=== PATIENT | female | born 1950 | race African-American/Black ===

== ENCOUNTER 2020-03-06 07:39 | Inpatient (IN) | payer BC, MEDICARE ==
[2020-03-06 08:42] LABS: ABSOLUTE BASOPHILS # (AUTO) 0.1 10^3/uL (0.0-0.2); ABSOLUTE EOSINOPHILS # (AUTO) 0.1 10^3/uL (0.0-0.6); ABSOLUTE MONOCYTES (AUTO) 0.4 10^3/uL (0.1-1.4); BASOPHILS % (AUTO) 0.9 % (0-2); EOSINOPHILS % (AUTO) 1.8 % (0-6); HEMATOCRIT 37.9 % (36.0-47.0); HEMOGLOBIN 12.8 g/dL (12.0-15.5); LYMPHOCYTES % (AUTO) 17.5 % (13-45); MEAN CORPUSCULAR HEMOGLOBIN 31.1 pg (27.0-33.4); MEAN CORPUSCULAR HGB CONC 33.8 g/dL (32.0-36.0); MEAN CORPUSCULAR VOLUME 92 fl (80-97); MONOCYTES % (AUTO) 6.7 % (3-13); PLATELET COUNT 130 10^3/uL (150-450); RED BLOOD COUNT 4.12 10^6/uL (3.72-5.28); RED CELL DISTRIBUTION WIDTH 14.7 % (11.5-14.0); SEGMENTED NEUTROPHILS % (AUTO) 73.1 % (42-78); TOTAL CELLS COUNTED % (AUTO) 100 %; WHITE BLOOD COUNT 5.5 10^3/uL (4.0-10.5)
[2020-03-06] MEDS ORDERED: IPRATROPIUM/ALBUTEROL 0.5-2.5 MG/3 ML AMPUL NEB ONE (08:47)
--- NOTE | 2020-03-06 08:50 | RADIOLOGY REPORT (SQ) ---
EXAM DESCRIPTION: CHEST SINGLE VIEW IMAGES COMPLETED DATE/TIME: 03/06/2020 8:21 am REASON FOR STUDY: SOB COMPARISON: None. EXAM PARAMETERS: NUMBER OF VIEWS: One view. TECHNIQUE: An AP view of the chest was obtained. RADIATION DOSE: NA LIMITATIONS: None. FINDINGS: LUNGS AND PLEURA: Patchy bilateral basilar predominant patchy parenchymal opacities. The costophrenic sulci are blunted. There is no pneumothorax. MEDIASTINUM AND HILAR STRUCTURES: No mediastinal or hilar contour abnormality. HEART AND VASCULAR STRUCTURES: The cardiac silhouette is enlarged. BONES: No acute findings. HARDWARE: None in the chest. OTHER: No other finding. IMPRESSION: Cardiomegaly, small bilateral pleural effusions and patchy bilateral basilar predominant patchy parenchymal opacities. Differential considerations include CHF and multifocal pneumonia. TECHNICAL DOCUMENTATION: JOB ID: [id number] [employer]- All Rights Reserved Reading location - IP/workstation name: [email or web address]
--- NOTE | 2020-03-06 08:55 | ER Document Report ---
ED Respiratory Problem - General Chief Complaint: Shortness Of Breath Stated Complaint: breathing difficulty Time Seen by Provider: 03/06/20 08:16 Primary Care Provider: ALEX MENCHACA PA [Primary Care Provider] - Follow up as needed Notes: Patient is a 69-year-old female presents emergency department with a chief com plaint of shortness of breath. Patient tested positive for COVID-19 6 days ago. States that she had felt more short of breath yesterday and this morning. States that the only history she has is knee surgery. She does not take any medications on a regular basis. Denies any coughing. Patient was tested for COVID-19 at [facility] urgent care. TRAVEL OUTSIDE OF THE [place] IN LAST 30 DAYS: No - Related Data Allergies/Adverse Reactions: No Known Allergies Allergy (Unverified 03/06/20 08:02) Home Medications: tumerix, aspirin Past Medical History - General Information source: Patient - Social History Smoking Status: Current Some Day Smoker Chew tobacco use (# tins/day): No Frequency of alcohol use: None Drug Abuse: None Family History: Reviewed & Not Pertinent Patient has homicidal ideation: No Review of Systems - Review of Systems Notes: REVIEW OF SYSTEMS: CONSTITUTIONAL : Denies recent illness. Denies recent unintentional weight loss. Denies fever, chills, or sweats. EENT: Denies eye, ear, throat, or mouth pain, discharge, or symptoms. Denies nasal or sinus congestion. CARDIOVASCULAR: Denies chest pain. RESPIRATORY: See HPI. GASTROINTESTINAL: Denies nausea, vomiting, and diarrhea. Denies abdominal pain. Denies constipation. GENITOURINARY: Denies difficulty urinating, burning, blood in urine, urgency or frequency. MUSCULOSKELETAL: Denies neck and back pain. Denies joint pain or swelling. SKIN: Denies rash, itchiness, or lesions HEMATOLOGIC : Denies easy bruising or bleeding. LYMPHATIC: Denies swollen, painful, enlarged glands. NEUROLOGICAL: Denies no numbness or tingling denies weakness. Denies headache. Denies altered mental status. Denies alteration in speech. PSYCHIATRIC: Denies stress, anxiety, alteration in sleep patterns, or depression. All other systems reviewed and negative. Physical Exam - Vital signs Vitals: Temp 98.1 F 03/06/20 07:39 - Notes Notes: PHYSICAL EXAMINATION: GENERAL: Appears well, healthy, well-nourished, no acute distress. HEAD: Normocephalic, atraumatic. EYES: PERRL, conjunctiva normal, all extraocular movements intact, sclera nonicteric ENT: Moist mucous membranes. NECK: Supple, no noticeable swelling, redness, rash. Normal range of motion. LUNGS: Diminished breath sounds. CARDIOVASCULAR: S1-S2, regular rate, regular rhythm. Radial pulses 2+, normal. ABDOMEN: Normoactive bowel sounds. Soft, nontender, no guarding, no rebound tenderness, and no masses palpated. EXTREMITIES: Normal strength and range of motion, no pitting or edema. No cyanosis. NEUROLOGICAL: Moves all extremities upon command. Strength 5/5 in all extremities. PSYCH: Normal mood, normal affect. SKIN: Warm, dry. No rash, lesions, ulcerations noted. Normal skin turgor. Course - Re-evaluation Re-evalutation: 03/06/20 09:39 Patient reports that she is feeling better after receiving her DuoNeb treatment. Chest x-ray shows cardiomegaly with small bilateral pleural effusions or possibly pneumonia. Radiologist reads that there may be a CHF component to this. Added a BNP to labs. Hematology is unremarkable. Chemistries are also unremarkable. LFTs are slightly elevated. 03/06/20 10:37 BNP is 12,100, consistent with congestive heart failure. I spoke with Dr. Joshua, the hospitalist. Patient will be admitted under observation to the telemetry floor. - Vital Signs Vital signs: Temp Pulse Resp BP Pulse Ox 98.1 F 107 H 30 H 184/101 H 99 03/06/20 07:43 03/06/20 07:43 03/06/20 07:43 03/06/20 07:43 03/06/20 07:50 - Laboratory Results Result Diagrams: 03/06/20 08:28 03/06/20 08:28 Laboratory Results Interpreted: 03/06/20 03/06/20 03/06/20 08:28 08:28 08:28 RDW 14.7 H Plt Count 130 L Carbonic Acid ABG pCO2 ABG pO2 ABG HCO3 ABG Total CO2 ABG O2 Saturation Glucose 133 H AST 46 H ALT 77 H NT-Pro-B Natriuret Pep 80461 H Urine Protein Urine Blood Urine Urobilinogen Ur Leukocyte Esterase Urine Ascorbic Acid 03/06/20 03/06/20 09:29 09:37 RDW Plt Count Carbonic Acid 0.75 L ABG pCO2 25.0 L ABG pO2 60.7 L ABG HCO3 14.7 L ABG Total CO2 15.5 L ABG O2 Saturation 91.6 L Glucose AST ALT NT-Pro-B Natriuret Pep Urine Protein 100 H Urine Blood SMALL H Urine Urobilinogen 2.0 H Ur Leukocyte Esterase TRACE H Urine Ascorbic Acid 40 H Critical Laboratory Results Reviewed: No Critical Results - Radiology Results Critical Radiology Results Reviewed: No Critical Results Discharge - Discharge Clinical Impression: Hypoxia, COVID-19 Congestive heart failure Qualifiers: Heart failure type: unspecified Heart failure chronicity: acute Qualified Code(s): I50.9 - Heart failure, unspecified Condition: Stable Disposition: ADMITTED OBSERVATION Admitting Provider: Josiane (Hospitalist) Unit Admitted: Telemetry Referrals: ALEX MENCHACA PA [Primary Care Provider] - Follow up as needed
[2020-03-06] MEDS ORDERED: METHYLPREDNISOLONE INJ 125 MG/2 ML SDV IV ONE (08:58)
[2020-03-06 09:07] LABS: ALBUMIN 4.1 g/dL (3.5-5.0); ALKALINE PHOSPHATASE 90 U/L (38-126); ANION GAP 8 (5-19); ASPARTATE AMINO TRANSFERASE 46 U/L (14-36); BILIRUBIN,DIRECT 0.2 mg/dL (0.0-0.4); BLOOD UREA NITROGEN 14 mg/dL (7-20); CALCIUM 9.5 mg/dL (8.4-10.2); CARBON DIOXIDE 26 mmol/L (22-30); CHLORIDE 105 mmol/L (98-107); GLUCOSE 133 mg/dL (75-110); POTASSIUM 3.6 mmol/L (3.6-5.0); TOTAL PROTEIN 7.1 g/dL (6.3-8.2)
[2020-03-06 09:52] LABS: ARTERIAL BLOOD BASE EXCESS -8.6 mmol/L; ARTERIAL BLOOD H2CO3 0.75 mmol/L (1.05-1.35); ARTERIAL BLOOD HCO3 14.7 mmol/L (20-24); ARTERIAL BLOOD O2 SATURATION 91.6 % (94-98); ARTERIAL BLOOD PH 7.39 (7.35-7.45); ARTERIAL BLOOD PO2 60.7 mmHg (80-100); ARTERIAL BLOOD TOTAL CO2 15.5 mmol/L (21-25)
[2020-03-06 09:53] LABS: ARTERIAL BLOOD FIO2 RA
[2020-03-06 10:08] LABS: APPEARANCE,URINE SLIGHTLY-CLOUDY; BILIRUBIN,URINE NEGATIVE (NEGATIVE); COLOR,URINE YELLOW; GLUCOSE, URINE NEGATIVE (NEGATIVE); KETONES,URINE NEGATIVE (NEGATIVE); LEUKOCYTE ESTERASE,URINE TRACE (NEGATIVE); NITRITE,URINE NEGATIVE (NEGATIVE); PROTEIN,URINE 100 mg/dL (NEGATIVE)
[2020-03-06] MEDS ORDERED: FUROSEMIDE INJ/PF 20 MG/2 ML SDV IV ONE (10:20)
--- NOTE | 2020-03-06 11:38 | RADIOLOGY REPORT (SQ) ---
EXAM DESCRIPTION: CTA CHEST IMAGES COMPLETED DATE/TIME: 03/06/2020 11:04 am REASON FOR STUDY: SOB, COVID, R/O PE COMPARISON: None. TECHNIQUE: CT scan of the chest performed using helical scanning technique with dynamic intravenous contrast injection. Images reviewed with lung, soft tissue and bone windows. Reconstructed coronal and sagittal MPR images reviewed. Additional 3 dimensional post-processing performed to develop Maximal Intensity Projection images (NV P). All images stored on PACS. All CT scanners at this facility use dose modulation, iterative reconstruction, and/or weight based d osing when appropriate to reduce radiation dose to as low as reasonably achievable (ALARA). [facility]: Dose Right [facility]: CareDose [facility]: Dose Right [facility]: Teradose 4D [facility]: DigiMeld CONTRAST TYPE AND DOSE: Contrast/concentration: Isovue 350.00 mmol/ml; Total Contrast Delivered: 70. 0 ml; Total Saline Delivered: 55.0 ml Contrast bolus optimized for the pulmonary arteries. Not diagnostic for the aorta. RENAL FUNCTION: GFR > 60. RADIATION DOSE: CT Rad equipment meets quality standard of care and radiation dose reduction techniq ues were employed. CTDIvol: 14.6 - 26.4 mGy. DLP: 518 mGy-cm. LIMITATIONS: None. FINDINGS: LUNGS AND PLEURA: There is mild upper lobe predominant centrilobular emphysema. The trach ea and main bronchi are patent. There are small bilateral pleural effusions associated with thickeni ng of the interlobular septae. There is no superimposed consolidation or pneumothorax. AORTA AND GREAT VESSELS: Evaluation is limited as the contrast bolus was optimized for evaluation of the pulmonary arteries. HEART: The heart is enlarged. The reflux of contrast into the IVC and hepatic veins is suggestive o f underlying right-sided cardiac dysfunction. There is no pericardial effusion. PULMONARY ARTERIES: The main pulmonary artery is dilated and it measures 3.2 cm in transverse diamete r. There are no pulmonary emboli. HILAR AND MEDIASTINAL STRUCTURES: No adenopathy or mass. HARDWARE: None in the chest. UPPER ABDOMEN: No acute abnormality. THYROID AND OTHER SOFT TISSUES: No adenopathy or mass. BONES: The heterogeneous sclerotic appearance of the thoracic vertebral bodies from T5 to T12 is like ly degenerative as the sclerosis is centered around the endplates. 3D MIPS: Confirm above findings. OTHER: No other findings. IMPRESSION: 1. Cardiomegaly, small bilateral pleural effusions and thickening of the interlobular s eptae - these findings are concerning for CHF. 2. The reflux of contrast into the IVC and hepatic veins is suggestive of underlying right-sided car diac dysfunction. 3. Dilatation of the main pulmonary artery - correlate for pulmonary hypertension. COMMENT: Quality ID # [id number]: Final reports with documentation of one or more dose reduction techniques (e.g., Automated exposure control, adjustment of the mA and/or kV according to patient size, use of iterative reconstruction technique) TECHNICAL DOCUMENTATION: JOB ID: [id number] 2010 [employer]- All Rights Reserved Reading location - IP/workstation name: [email or web address]
[2020-03-06] MEDS ORDERED: LOSARTAN POTASSIUM 50 MG TABLET PO ONE (14:00)
--- NOTE | 2020-03-06 14:08 | PDOC H&P ---
History of Present Illness Admission Date/PCP: 03/06/20 11:27 OMID MALHOTRA Patient complains of: SOB History of Present Illness: CRISTÓBAL HOWE is a 69 year old female with no prior history of heart disease but does not follow with her doctor, who presents to the hospital for evaluation of progressive shortness of breath over the past 2 weeks. She is not having much of any cough with no sputum production. She states he tested positive as outpatient for rapid COVID-19 1 week ago but her symptoms started a week prior to that. She denies having any fever, chills, diarrhea, muscle aches or pains. She admits to orthopnea and occasional PND. Also starting to develop mild lower extremity swelling. She received steroids in the ER as well as IV Lasix. Feels a little bit better. Notably she is a chronic smoker but no prior diagnosis of asthma or COPD. Past Medical History Cardiac Medical History: Reports: None Past Surgical History Past Surgical History: Denies: Cardiac Catheterization, Coronary Artery Bypass Graft, Coronary Stent Social History Smoking Status: Current Some Day Smoker Electronic Cigarette use?: No Frequency of Alcohol Use: Occasional Hx Recreational Drug Use: No - Advance Directive Resuscitation Status: Full Code Family History Family History: Hypertension, Malignancy - liver Parental Family History Reviewed: Yes Children Family History Reviewed: Yes Sibling(s) Family History Reviewed.: Yes Medication/Allergy Allergies/Adverse Reactions: No Known Allergies Allergy (Unverified 03/06/20 08:02) Review of Systems Constitutional: ABSENT: chills, fatigue, fever(s) Eyes: ABSENT: visual disturbances Ears: ABSENT: hearing changes Nose, Mouth, and Throat: ABSENT: headache(s) Cardiovascular: PRESENT: dyspnea on exertion, edema, orthropnea. ABSENT: chest pain, palpitations Respiratory: PRESENT: dyspnea. ABSENT: sputum Gastrointestinal: ABSENT: abdominal pain, diarrhea, nausea, vomiting Genitourinary: ABSENT: difficulty urinating, dysuria Musculoskeletal: ABSENT: joint swelling Integumentary: ABSENT: diaphoresis Neurological: ABSENT: dizziness Psychiatric: ABSENT: anxiety Endocrine: PRESENT: polyuria Physical Exam Vital Signs: Temp Pulse Resp BP Pulse Ox 98.0 F 107 H 21 H 150/128 H 93 03/06/20 09:01 03/06/20 07:43 03/06/20 13:08 03/06/20 13:08 03/06/20 13:08 Intake & Output 03/05/20 03/06/20 03/07/20 06:59 06:59 06:59 Weight 98.8 kg General appearance: PRESENT: no acute distress, cooperative Head exam: PRESENT: normocephalic Neck exam: PRESENT: JVD Respiratory exam: PRESENT: clear to auscultation anup, symmetrical, unlabored. ABSENT: crackles, rhonchi, tachypnea, wheezes Cardiovascular exam: PRESENT: RRR, +S1, +S2. ABSENT: tachycardia GI/Abdominal exam: PRESENT: soft. ABSENT: rebound, rigid, tenderness Extremities exam: PRESENT: pedal edema Neurological exam: PRESENT: alert, awake, oriented to person, oriented to place, oriented to time, oriented to situation Focused psych exam: ABSENT: pressured speech Skin exam: ABSENT: jaundice Results Laboratory Results: 03/06/20 08:28 03/06/20 08:28 03/06/20 03/06/20 03/06/20 08:28 08:28 09:29 WBC 5.5 RBC 4.12 Hgb 12.8 Hct 37.9 MCV 92 MCH 31.1 MCHC 33.8 RDW 14.7 H Plt Count 130 L Seg Neutrophils % 73.1 Carbonic Acid HCO3/H2CO3 Ratio ABG pH ABG pCO2 ABG pO2 ABG HCO3 ABG O2 Saturation ABG Base Excess FiO2 Sodium 139.0 Potassium 3.6 Chloride 105 Carbon Dioxide 26 Anion Gap 8 BUN 14 Creatinine 0.80 Est GFR ( Amer) > 60 Glucose 133 H Calcium 9.5 Total Bilirubin 1.0 AST 46 H Alkaline Phosphatase 90 Total Protein 7.1 Albumin 4.1 Urine Color YELLOW Urine Appearance SLIGHTLY-CLOUDY Urine pH 6.0 Ur Specific Heath 1.020 Urine Protein 100 H Urine Glucose (UA) NEGATIVE Urine Ketones NEGATIVE Urine Blood SMALL H Urine Nitrite NEGATIVE Ur Leukocyte Esterase TRACE H Urine WBC (Auto) 11 Urine RBC (Auto) 5 03/06/20 09:37 WBC RBC Hgb Hct MCV MCH MCHC RDW Plt Count Seg Neutrophils % Carbonic Acid 0.75 L HCO3/H2CO3 Ratio 19:1 ABG pH 7.39 ABG pCO2 25.0 L ABG pO2 60.7 L ABG HCO3 14.7 L ABG O2 Saturation 91.6 L ABG Base Excess -8.6 FiO2 RA Sodium Potassium Chloride Carbon Dioxide Anion Gap BUN Creatinine Est GFR ( Amer) Glucose Calcium Total Bilirubin AST Alkaline Phosphatase Total Protein Albumin Urine Color Urine Appearance Urine pH Ur Specific Heath Urine Protein Urine Glucose (UA) Urine Ketones Urine Blood Urine Nitrite Ur Leukocyte Esterase Urine WBC (Auto) Urine RBC (Auto) 03/06/20 08:28 NT-Pro-B Natriuret Pep 34348 H Impressions: Chest/Abdomen CTA 03/06/20 00:00 IMPRESSION: 1. Cardiomegaly, small bilateral pleural effusions and thickening of the interlobular septae - these findings are concerning for CHF. 2. The reflux of contrast into the IVC and hepatic veins is suggestive of underlying right-sided cardiac dysfunction. 3. Dilatation of the main pulmonary artery - correlate for pulmonary hypertension. Chest X-Ray 03/06/20 07:50 IMPRESSION: Cardiomegaly, small bilateral pleural effusions and patchy bi lateral basilar predominant patchy parenchymal opacities. Differential considerations include CHF and multifocal pneumonia. Assessment and Plan - Diagnosis (1) Acute CHF Qualifiers: Heart failure type: unspecified Qualified Code(s): I50.9 - Heart failure, unspecified Is this a current diagnosis for this admission?: Yes Plan: Symptoms and signs are consistent with CHF. Very orthopneic on my exam as well. CTA showing evidence of right heart failure. Check Echo Lasix BID strict I/Os Fluid restriction 1500cc/Tele Monitor electrolytes and renal function (2) Uncontrolled hypertension Is this a current diagnosis for this admission?: Yes Plan: start on Losartan. Lasix. Monitor BP. (3) Lab test positive for detection of COVID-19 virus Is this a current diagnosis for this admission?: Yes Plan: Patient reports rapid positive test 1 week ago as outpatient. However, our current rapid PCR test is negative. CTA chest doesn't show any parenchymal disease compatible with PNA. Likely she has cleared the virus or initial outpatient rapid test was a false positive. (4) Hypoxia Is this a current diagnosis for this admission?: Yes Plan: pO2 of 60. 2/2 CHF. No PE on CTA. - Time Time Spent with patient: 35 or more minutes Anticipated Discharge Disposition: Home, Self Care Anticipated Discharge Timeframe: within 48 hours
[2020-03-06] MEDS ORDERED: HYDRALAZINE HCL INJ/PF 20 MG/1 ML SDV IV PRN (14:14)
--- NOTE | 2020-03-06 18:01 | EKG REPORT ---
SEVERITY:- ABNORMAL ECG - SINUS RHYTHM PROBABLE LEFT ATRIAL ABNORMALITY LVH WITH SECONDARY REPOLARIZATION ABNORMALITY : Confirmed by: Zehra Meza MD 06-Mar-2020 17:59:43
[2020-03-06] MEDS: FUROSEMIDE INJ/PF 20 MG/2 ML SDV IV SCH (18:44)
[2020-03-06] MEDS: LOSARTAN POTASSIUM 50 MG TABLET PO SCH (21:07)
[2020-03-06] MEDS: FAMOTIDINE 20 MG TABLET PO SCH (21:07)
--- NOTE | 2020-03-06 21:45 | XCELERA REPORT ---
[address] [address] Transthoracic Echocardiogram Report Name: CRISTÓBAL HOWE Age: 69 yrs Gender: Female : 1950 Patient Status: Inpatient Patient Location: [address] [place] [address] Study Date: 03/06/2020 05:11 PM Height: 66 in Weight: 217 lb BSA: 2.1 m2 Procedure: A complete two-dimensional transthoracic echocardiogram was performed (2D, M-mode, spectral and color flow Doppler). The study was technically good with many images being of high quality. Reason For Study: elevated bnp. ?CHF Ordering Physician: AUGUSTO VENEGAS Performed By: Monica Calvillo Interpretation Summary The left ventricle is moderately dilated. There is mild concentric left ventricular hypertrophy. Left ventricular systolic function is severely reduced. The Ejection Fraction estimate is 20-25%. Doppler measurements suggest pseudonormalized left ventricular relaxation, which is associated with grade II/IV or mild to moderate diastolic dysfunction. There is severe global hypokinesis of the left ventricle. RV systolic function is borderline decreased. Mild LAE. Trace MR, moderate AI, trace TR, mild PI. No prior studies for comparison. MMode/2D Measurements & Calculations RVDd: 2.1 cm LVIDd: 6.2 cm FS: 13.0 % Ao root diam: 2.5 cm IVSd: 1.2 cm LVIDs: 5.4 cm EDV(Teich): Ao root area: 193.6 ml LVPWd: 1.1 cm 5.1 cm2 ESV(Teich): 140.5 ml EF(Teich): 27.4 % LVOT diam: 2.0 cmEDV(MOD-sp4): SV(MOD-sp4): LVOT area: 155.3 ml 36.5 ml 3.2 cm2 ESV(MOD-sp4): 118.7 ml EF(MOD-sp4): 23.5 % Doppler Measurements & Calculations MV E max edyta: MV dec slope: Ao V2 max: AI max edyta: 122.2 cm/sec 215.9 cm/sec 485.9 cm/sec MV A max edyta: 973.0 cm/sec2 Ao max PG: AI max P.4 mmHg 93.9 cm/sec MV dec time: 18.6 mmHg AI dec slope: MV E/A: 1.3 0.13 sec Ao V2 mean: 126.0 cm/sec 315.9 cm/sec2 Ao mean PG: AI P1/2t: 450.5 msec 8.1 mmHg Ao V2 VTI: 38.4 cm MIKE(I,D): 1.0 cm2 MIKE(V,D): 1.1 cm2 LV V1 max PG: SV(LVOT): 39.7 ml PA V2 max: TR max edyta: 2.4 mmHg 69.0 cm/sec 203.7 cm/sec LV V1 mean PG: PA max PG: TR max P.6 mmHg 1.1 mmHg 1.9 mmHg LV V1 max: 77.6 cm/sec LV V1 mean: 48.6 cm/sec LV V1 VTI: 12.6 cm Left Ventricle The left ventricle is moderately dilated. There is mild concentric left ventricular hypertrophy. Left ventricular systolic function is severely reduced. The Ejection Fraction estimate is 20-25%. Doppler measurements suggest pseudonormalized left ventricular relaxation, which is associated with grade II/IV or mild to moderate diastolic dysfunction. There is severe global hypokinesis of the left ventricle. Right Ventricle The right ventricle is grossly normal size. The right ventricular systolic function is borderline reduced. Atria The right atrium is normal. The left atrium is mildly dilated. There is no Doppler evidence for an interatrial shunt. Mitral Valve There is mild mitral annular calcification. There is a trace amount of mitral regurgitation. Aortic Valve The aortic valve is calcified. There is a moderate amount of aortic regurgitation. Tricuspid Valve The tricuspid is normal in structure and function. There is a trace amount of tricuspid regurgitation. Pulmonic Valve The pulmonic valve is not well visualized. There is a mild amount of pulmonic regurgitation. Great Vessels The inferior vena cava appeared normal and decreased > 50% with respiration (RAP 5-10 mmHg). Effusions There is no pericardial effusion. There is no pleural effusion. : AUGUSTO VENEGAS Antonio
[2020-03-07 07:06] LABS: HEMATOCRIT 37.7 % (36.0-47.0); HEMOGLOBIN 12.8 g/dL (12.0-15.5); MEAN CORPUSCULAR HEMOGLOBIN 31.3 pg (27.0-33.4); MEAN CORPUSCULAR VOLUME 92 fl (80-97); PLATELET COUNT 126 10^3/uL (150-450); RED BLOOD COUNT 4.08 10^6/uL (3.72-5.28); RED CELL DISTRIBUTION WIDTH 14.8 % (11.5-14.0); WHITE BLOOD COUNT 7.8 10^3/uL (4.0-10.5)
[2020-03-07 07:32] LABS: ALBUMIN 4.2 g/dL (3.5-5.0); ALKALINE PHOSPHATASE 90 U/L (38-126); ANION GAP 10 (5-19); ASPARTATE AMINO TRANSFERASE 35 U/L (14-36); BILIRUBIN,DIRECT 0.3 mg/dL (0.0-0.4); BILIRUBIN,TOTAL 0.8 mg/dL (0.2-1.3); BLOOD UREA NITROGEN 17 mg/dL (7-20); C-REACTIVE PROTEIN 7.1 mg/L (<10.0); CALCIUM 9.6 mg/dL (8.4-10.2); CARBON DIOXIDE 26 mmol/L (22-30); CHLORIDE 104 mmol/L (98-107); CHOLESTEROL 169.88 mg/dL (0-200); GLUCOSE 118 mg/dL (75-110); POTASSIUM 3.9 mmol/L (3.6-5.0); TOTAL PROTEIN 6.9 g/dL (6.3-8.2); TRIGLYCERIDES 96 mg/dL (<150)
[2020-03-07 07:41] LABS: DIRECT LDL 113 mg/dL (<100)
[2020-03-07] MEDS: FAMOTIDINE 20 MG TABLET PO SCH ×2 (09:32→21:48)
[2020-03-07] MEDS: LOSARTAN POTASSIUM 50 MG TABLET PO SCH (09:32)
[2020-03-07] MEDS: ENOXAPARIN SODIUM INJ 40 MG/0.4 ML DISP.SYRIN SUBCUT SCH (09:33)
[2020-03-07] MEDS: FUROSEMIDE INJ/PF 20 MG/2 ML SDV IV SCH ×2 (09:33→17:35)
--- NOTE | 2020-03-07 09:50 | EKG REPORT ---
SEVERITY:- ABNORMAL ECG - PACEMAKER SPIKES OR ARTIFACTS SINUS RHYTHM PROBABLE LEFT ATRIAL ABNORMALITY LVH WITH SECONDARY REPOLARIZATION ABNORMALITY : Confirmed by: Zehra Meza MD 07-Mar-2020 09:50:30
--- NOTE | 2020-03-07 11:03 | PDOC CONSULTATION ---
Consultation Consult Date: 03/07/20 Attending physician:: JACQUES BELTRAN Provider Consulted: KJ WANG Consult reason:: Cardiomyopathy, low EF, acute CHF History of Present Illness Admission Date/PCP: 03/07/20 09:28 OMID MALHOTRA Patient complains of: Progressive shortness of breath History of Present Illness: CRISTÓBAL HOWE is a 69 year old female with no prior history of heart disease but does not follow with her doctor, who presents to the hospital for evaluation of progressive shortness of breath over the past 2 weeks. She is not having much of any cough with no sputum production. She states she tested positive as outpatient for rapid COVID-19 1 week ago but her symptoms started a week prior to that. She denies having any fever, chills, diarrhea, muscle aches or pains. She admits to orthopnea and occasional PND. Also starting to develop mild lower extremity swelling. She received steroids in the ER as well as IV Lasix. Feels a little bit better. Notably she is a chronic smoker but no prior diagnosis of asthma or COPD. Patient denied any prior history of hypertension but her blood pressure has been noted while she has been in the hospital. Patient denied any chest arm or neck discomfort. Patient denied any history of sustained palpitations, syncope, near syncope. Patient has noted some interm ittent pedal edema. Patient denies any recent hospitalization for cardiac complaints. Patient denies any previous cardiac work-up as an outpatient. 2D echo obtained as an inpatient was reviewed. Past Medical History Cardiac Medical History: Reports: None Psychiatric Medical History: Denies: Depression Past Surgical History Past Surgical History: Denies: Cardiac Catheterization, Coronary Artery Bypass Graft, Coronary Stent Social History Information Source: Patient Smoking Status: Current Some Day Smoker Electronic Cigarette use?: No Frequency of Alcohol Use: Occasional Hx Recreational Drug Use: No Drugs: None Hx Prescription Drug Abuse: No - Advance Directive Resuscitation Status: Full Code Family History Family History: Hypertension, Malignancy - liver Parental Family History Reviewed: Yes Children Family History Reviewed: Yes Sibling(s) Family History Reviewed.: Yes Medication/Allergy Home Medications: No Home Medications 03/06/20 Allergies/Adverse Reactions: No Known Allergies Allergy (Unverified 03/06/20 08:02) Review of Systems Cardiovascular: PRESENT: as per HPI, dyspnea on exertion, edema. ABSENT: chest pain, palpitations Physical Exam Vital Signs: Temp Pulse Resp BP Pulse Ox 97.7 F 76 20 127/69 H 99 03/07/20 04:29 03/07/20 04:29 03/07/20 04:29 03/07/20 04:29 03/07/20 04:29 Intake & Output 03/06/20 03/07/20 03/08/20 06:59 06:59 06:59 Intake Total 480 Output Total 0 Balance 480 Weight 88.6 kg Exam: GENERAL: well-nourished and in no acute distress. Alert and oriented x3 HEAD: Atraumatic, normocephalic. EYES: KRISTIN, sclera anicteric, conjunctiva are normal. ENT: Moist mucous membranes. No oral ulcerations or bleeding gums noted. No obvious ear, nose or throat abnormalities noted. NECK: supple without lymphadenopathy. Trachea is central. No cervical or axillary lymphadenopathy noted. Carotids are 2+, JVD borderline elevated LUNGS: Bibasilar fine crackles noted. No wheezes rales or rhonchi noted. No significant dullness noted on percussion. CHEST: Palpation of the chest wall shows no significant chest wall tenderness. HEART: [place] [employer] [employer], No PSH, 1/6 HELENA aortic area, 1/6 sprague systolic murmur mitral area, no rubs, S3 gallops. ABDOMEN: Soft, no significant tenderness appreciated, normoactive bowel sounds. No guarding, no rebound. No rigidity noted . No masses appreciated. EXTREMITIES: Pedal pulses are 1-2+, no calf tenderness noted. No clubbing or cyanosis. 1+ pedal edema noted NEUROLOGICAL: Focused neurological exam showed no significant neurologic deficit. Normal speech, no focal weakness appreciated. PSYCH: Normal mood, normal affect. Judgment and insight within normal limits. SKIN: No significant ecchymosis, skin is noted to be warm. MUSCULOSKELETAL EXAM: No significant acute joint swelling noted. Results Laboratory Results: 03/07/20 06:38 03/07/20 06:38 03/07/20 03/07/20 03/07/20 06:38 06:38 06:38 WBC 7.8 RBC 4.08 Hgb 12.8 Hct 37.7 MCV 92 MCH 31.3 MCHC 34.0 RDW 14.8 H Plt Count 126 L Sodium 139.5 Potassium 3.9 Chloride 104 Carbon Dioxide 26 Anion Gap 10 BUN 17 Creatinine 0.84 Est GFR ( Amer) > 60 Glucose 118 H Calcium 9.6 Magnesium 1.9 Ferritin 114.00 Total Bilirubin 0.8 AST 35 Alkaline Phosphatase 90 C-Reactive Protein 7.1 Total Protein 6.9 Albumin 4.2 Triglycerides 96 Cholesterol 169.88 LDL Cholesterol Direct 113 H VLDL Cholesterol 19.0 HDL Cholesterol 41 TSH 1.68 03/06/20 03/06/20 03/06/20 08:28 08:28 21:01 Troponin I 0.056 0.048 NT-Pro-B Natriuret Pep [id number] H EKG Comments: Sinus rhythm, LVH with secondary ST-T wave changes Impressions: Chest/Abdomen CTA 03/06/20 00:00 IMPRESSION: 1. Cardiomegaly, small bilateral pleural effusions and thickening of the interlobular septae - these findings are concerning for CHF. 2. The reflux of contrast into the IVC and hepatic veins is suggestive of underlying right-sided cardiac dysfunction. 3. Dilatation of the main pulmonary artery - correlate for pulmonary hypertension. Chest X-Ray 03/06/20 07:50 IMPRESSION: Cardiomegaly, small bilateral pleural effusions and patchy bilateral basilar predominant patchy parenchymal opacities. Differential considerations include CHF and multifocal pneumonia. Assessment & Plan - Diagnosis (1) Acute CHF Qualifiers: Heart failure type: combined systolic and diastolic Qualified Code(s): I50.41 - Acute combined systolic (congestive) and diastolic (congestive) heart failure Is this a current diagnosis for this admission?: Yes (2) Hypoxia Is this a current diagnosis for this admission?: Yes (3) Uncontrolled hypertension Is this a current diagnosis for this admission?: Yes (4) Cardiomyopathy Qualifiers: Cardiomyopathy type: unspecified Qualified Code(s): I42.9 - Cardiomyopathy, unspecified Is this a current diagnosis for this admission?: Yes - Notes Notes: Patient presented with progressive shortness of breath. On echocardiogram noted to have dilated cardiomyopathy along with aortic incompetence. Patient also has evidence of pulmonary hypertension based on enlarged pulmonary artery. At this point recommend optimization of management for cardiomyopathy. Have added small dose of beta-edna carvedilol. Recommend switch to Entresto if available at the hospital. Recommend arrangement for LifeVest application prior to discharge. At some point patient will benefit from an ischemia evaluation but this can be arranged as an outpatient. Heart catheterization or CT angiogram is preferred. Patient will also benefit from evaluation with a sleep study. This is usually recommended inpatient with cardiomyopathy, pulmonary hypertension, CHF etc. Continue with current dose of diuretic therapy. Consider adding spironolactone to the regimen. Hydralazine nitrate combination is also an option to be added. We will continue to follow patient. Agree with current management plans. - Time Time Spent: 30 to 50 Minutes Medications reviewed and adjusted accordingly: Yes
[2020-03-07] MEDS: ACETAMINOPHEN 325 MG TABLET PO PRN ×2 (12:00→17:51)
[2020-03-07] MEDS: CARVEDILOL 3.125 MG TABLET PO SCH ×2 (12:01→21:49)
[2020-03-07] MEDS: SPIRONOLACTONE 25 MG TABLET PO SCH (12:01)
--- NOTE | 2020-03-07 14:27 | PDOC PROGRESS REPORT ---
Subjective Date:: 03/07/20 Subjective:: Feels better in terms of her breathing but still gets winded on exertion. Reason For Visit: ACUTE CHF Physical Exam Vital Signs: Temp Pulse Resp BP Pulse Ox 97.7 F 85 20 140/77 H 99 03/07/20 11:17 03/07/20 11:17 03/07/20 11:17 03/07/20 11:17 03/07/20 11:17 Intake & Output 03/06/20 03/07/20 03/08/20 06:59 06:59 06:59 Intake Total 480 Output Total 0 Balance 480 Weight 88.6 kg General appearance: PRESENT: no acute distress, cooperative Neck exam: ABSENT: JVD Respiratory exam: PRESENT: crackles - Bibasilar, symmetrical, unlabored. ABSENT: tachypnea, wheezes Cardiovascular exam: PRESENT: RRR, +S1, +S2. ABSENT: tachycardia GI/Abdominal exam: PRESENT: soft. ABSENT: rebound, rigid, tenderness Neurological exam: PRESENT: alert, awake, oriented to person, oriented to place, oriented to time, oriented to situation Results Laboratory Results: 03/07/20 06:38 03/07/20 06:38 03/07/20 03/07/20 03/07/20 06:38 06:38 06:38 WBC 7.8 RBC 4.08 Hgb 12.8 Hct 37.7 MCV 92 MCH 31.3 MCHC 34.0 RDW 14.8 H Plt Count 126 L Sodium 139.5 Potassium 3.9 Chloride 104 Carbon Dioxide 26 Anion Gap 10 BUN 17 Creatinine 0.84 Est GFR ( Amer) > 60 Glucose 118 H Calcium 9.6 Magnesium 1.9 Ferritin 114.00 Total Bilirubin 0.8 AST 35 Alkaline Phosphatase 90 C-Reactive Protein 7.1 Total Protein 6.9 Albumin 4.2 Triglycerides 96 Cholesterol 169.88 LDL Cholesterol Direct 113 H VLDL Cholesterol 19.0 HDL Cholesterol 41 TSH 1.68 03/06/20 03/06/20 03/06/20 08:28 08:28 21:01 Troponin I 0.056 0.048 NT-Pro-B Natriuret Pep [id number] H Impressions: Chest/Abdomen CTA 03/06/20 00:00 IMPRESSION: 1. Cardiomegaly, small bilateral pleural effusions and thickening of the interlobular septae - these findings are concerning for CHF. 2. The reflux of contrast into the IVC and hepatic veins is suggestive of underlying right-sided cardiac dysfunction. 3. Dilatation of the main pulmonary artery - correlate for pulmonary hypertension. Chest X-Ray 03/06/20 07:50 IMPRESSION: Cardiomegaly, small bilateral pleural effusions and patchy bilateral basilar predominant patchy parenchymal opacities. Differential considerations include CHF and multifocal pneumonia. Assessment and Plan - Diagnosis (1) Acute CHF Qualifiers: Heart failure type: combined systolic and diastolic Qualified Code(s): I50.41 - Acute combined systolic (congestive) and diastolic (congestive) heart failure Is this a current diagnosis for this admission?: Yes Plan: Symptoms and signs are consistent with CHF. Very orthopneic on my exam as well. CTA showing evidence of right heart failure. Echocardiogram shows ejection fraction of 20 to 25% with diastolic dysfunction and moderate aortic regurgitation Lasix BID strict I/Os Fluid restriction 1500cc/Tele Cardiology consulted and started patient on Entresto and Coreg. Lifevest requested. Patient to follow-up with Dr. Morales as outpatient for ischemic evaluation. Monitor electrolytes and renal function (2) Uncontrolled hypertension Is this a current diagnosis for this admission?: Yes Plan: entresto and coreg (3) Lab test positive for detection of COVID-19 virus Is this a current diagnosis for this admission?: Yes Plan: Patient reports rapid positive test 1 week ago as outpatient. However, our current rapid PCR test is negative. CTA chest doesn't show any parenchymal disease compatible with PNA. Likely she has cleared the virus or initial outpatient rapid test was a false positive. (4) Hypoxia Is this a current diagnosis for this admission?: Yes Plan: Continue diuresis. Wean to room air today. - Time Time Spent with patient: 15-24 minutes Anticipated Discharge Disposition: Home, Self Care Anticipated Discharge Timeframe: within 24 hours
[2020-03-07] MEDS: SACUBITRIL/VALSARTAN 24 MG/26 MG TABLET PO SCH (17:35)
[2020-03-07] MEDS ORDERED: ATORVASTATIN CALCIUM 40 MG TABLET PO SCH (22:00)
[2020-03-08] MEDS: ACETAMINOPHEN 325 MG TABLET PO PRN (03:27)
[2020-03-08] MEDS: SACUBITRIL/VALSARTAN 24 MG/26 MG TABLET PO SCH ×2 (06:17→17:32)
[2020-03-08 06:46] LABS: HEMATOCRIT 40.1 % (36.0-47.0); HEMOGLOBIN 13.6 g/dL (12.0-15.5); MEAN CORPUSCULAR HEMOGLOBIN 31.4 pg (27.0-33.4); MEAN CORPUSCULAR HGB CONC 33.9 g/dL (32.0-36.0); MEAN CORPUSCULAR VOLUME 93 fl (80-97); PLATELET COUNT 134 10^3/uL (150-450); RED BLOOD COUNT 4.32 10^6/uL (3.72-5.28); RED CELL DISTRIBUTION WIDTH 14.8 % (11.5-14.0); WHITE BLOOD COUNT 8.2 10^3/uL (4.0-10.5)
[2020-03-08 07:05] LABS: ALKALINE PHOSPHATASE 85 U/L (38-126); ANION GAP 6 (5-19); ASPARTATE AMINO TRANSFERASE 32 U/L (14-36); BILIRUBIN,DIRECT 0.2 mg/dL (0.0-0.4); BILIRUBIN,TOTAL 0.8 mg/dL (0.2-1.3); BLOOD UREA NITROGEN 20 mg/dL (7-20); CALCIUM 9.6 mg/dL (8.4-10.2); CARBON DIOXIDE 31 mmol/L (22-30); CHLORIDE 102 mmol/L (98-107); GLUCOSE 108 mg/dL (75-110); POTASSIUM 3.8 mmol/L (3.6-5.0); TOTAL PROTEIN 6.9 g/dL (6.3-8.2)
[2020-03-08] MEDS: FAMOTIDINE 20 MG TABLET PO SCH (09:10)
[2020-03-08] MEDS: SPIRONOLACTONE 25 MG TABLET PO SCH (09:10)
[2020-03-08] MEDS: ENOXAPARIN SODIUM INJ 40 MG/0.4 ML DISP.SYRIN SUBCUT SCH (09:11)
[2020-03-08] MEDS: FUROSEMIDE INJ/PF 20 MG/2 ML SDV IV SCH ×2 (09:11→17:32)
[2020-03-08] MEDS ORDERED: CARVEDILOL 6.25 MG TABLET PO SCH (10:00)
--- NOTE | 2020-03-08 11:42 | PDOC DISCHARGE SUMMARY ---
Impression - Admit/DC Date/PCP Admission Date/Primary Care Provider: 03/07/20 09:28 OMID MALHOTRA Discharge Date: 03/08/20 - Discharge Diagnosis (1) Acute CHF Is this a current diagnosis for this admission?: Yes (2) Moderate aortic regurgitation Is this a current diagnosis for this admission?: Yes (3) Uncontrolled hypertension Is this a current diagnosis for this admission?: Yes (4) Lab test positive for detection of COVID-19 virus Is this a current diagnosis for this admission?: Yes (5) Hypoxia Is this a current diagnosis for this admission?: Yes (6) Hyperlipidemia Is this a current diagnosis for this admission?: Yes - Additional Information Resuscitation Status: Full Code Discharge Diet: Cardiac Discharge Activity: Activity As Tolerated, Balance Activity w/Rest, Slowly Increase Activity, Weigh Daily Referrals: [facility] [Provider Group] - 03/16/20 ([employer] NEW PATIENT PACKET AND THEY WILL GIVE YOU A TIME) KJ WANG MD [ACTIVE STAFF] - 03/21/20 1:00 pm Prescriptions: Spironolactone [Aldactone 25 mg Tablet] 25 mg PO DAILY #30 tablet Carvedilol [Coreg 6.25 mg Tablet] 6.25 mg PO Q12 #60 tablet Sacubitril/Valsartan [Entresto 24 mg/26 mg Tablet] 1 tab PO Q12A #60 tablet Furosemide [Lasix 20 mg Tablet] 20 mg PO QAM #30 tablet Atorvastatin Calcium [Lipitor 40 mg Tablet] 40 mg PO QHS #30 tablet Home Medications: Atorvastatin Calcium [Lipitor 40 mg Tablet] 40 mg PO QHS #30 tablet 03/08/20 Carvedilol [Coreg 6.25 mg Tablet] 6.25 mg PO Q12 #60 tablet 03/08/20 Furosemide [Lasix 20 mg Tablet] 20 mg PO QAM #30 tablet 03/08/20 Sacubitril/Valsartan [Entresto 24 mg/26 mg Tablet] 1 tab PO Q12A #60 tablet 03/08/20 Spironolactone [Aldactone 25 mg Tablet] 25 mg PO DAILY #30 tablet 03/08/20 History of Present Illiness History of Present Illness: CRISTÓBAL HOWE is a 69 year old female with no prior history of heart disease but does not follow with her doctor, who presents to the hospital for evaluation of progressive shortness of breath over the past 2 weeks. She is not having much of any cough with no sputum production. She states he tested positive as outpatient for rapid COVID-19 1 week ago but her symptoms started a week prior to that. She denies having any fever, chills, diarrhea, muscle aches or pains. She admits to orthopnea and occasional PND. Also starting to develop mild lower extremity swelling. She received steroids in the ER as well as IV Lasix. Feels a little bit better. Notably she is a chronic smoker but no prior diagnosis of asthma or COPD. Hospital Course Hospital Course: Patient was admitted to the hospital with shortness of breath and hypoxia. She was requiring 2 to 3 L initially on nasal cannula. There was high suspicion for acute congestive heart failure. Notably she has not had any previous diagnosis of this. BNP was elevated and she also had some lower extremity swelling. She had reported testing positive for COVID-19 a week prior to presentation at outpatient via rapid test. However on in-house PCR test, her Covid test came back negative. She was also not febrile and did not show any clear signs of infections. He was supposed that her outpatient positive rapid antigen test could have been a false positive or she could have cleared the infection currently. However patient's notable problem was acute systolic and diastolic CHF. Echocardiogram showed ejection fraction of 20 to 25% with moderate aortic regurgitation. Patient was diuresed with IV Lasix and is currently feeling much better and has now been on room air. Cardiology was consulted who started patient on Entresto, Coreg and Aldactone. Patient also notably has hyperlipidemia so has been started on atorvastatin. LifeVest will be obtained prior to discharge. Patient is scheduled to follow-up with Dr. Wang in the office to be planned for ischemic work-up as well as for monitoring of heart failure electrolytes and renal function. Have discussed with patient and patient's family about her current condition and to avoid any strenuous activities. She has been instructed to wear her LifeVest at all times. Patient currently stable for discharge. Physical Exam Vital Signs: Temp Pulse Resp BP Pulse Ox 98.7 F 59 L 19 149/70 H 96 03/08/20 09:15 03/08/20 11:26 03/08/20 07:44 03/08/20 11:26 03/08/20 07:44 Intake & Output 03/07/20 03/08/20 03/09/20 06:59 06:59 06:59 Intake Total 480 847 Output Total 0 Balance 480 847 Weight 88.6 kg 88.2 kg General appearance: PRESENT: no acute distress, cooperative Neck exam: ABSENT: JVD Respiratory exam: PRESENT: clear to auscultation anup Cardiovascular exam: PRESENT: RRR, +S1, +S2. ABSENT: tachycardia GI/Abdominal exam: PRESENT: soft. ABSENT: rebound, rigid, tenderness Extremities exam: PRESENT: pedal edema - mild Musculoskeletal exam: PRESENT: ambulatory Neurological exam: PRESENT: alert, awake, oriented to person, oriented to place, oriented to time Results Laboratory Results: WBC 8.2 10^3/uL (4.0-10.5) 03/08/20 06:02 RBC 4.32 10^6/uL (3.72-5.28) 03/08/20 06:02 Hgb 13.6 g/dL (12.0-15.5) 03/08/20 06:02 Hct 40.1 % (36.0-47.0) 03/08/20 06:02 MCV 93 fl (80-97) 03/08/20 06:02 MCH 31.4 pg (27.0-33.4) 03/08/20 06:02 MCHC 33.9 g/dL (32.0-36.0) 03/08/20 06:02 RDW 14.8 % (11.5-14.0) H 03/08/20 06:02 Plt Count 134 10^3/uL (150-450) L 03/08/20 06:02 Lymph % (Auto) 17.5 % (13-45) 03/06/20 08:28 [place] % (Auto) 6.7 % (3-13) 03/06/20 08:28 Eos % (Auto) 1.8 % (0-6) 03/06/20 08:28 Baso % (Auto) 0.9 % (0-2) 03/06/20 08:28 Absolute Neuts (auto) 4.0 10^3/uL (1.7-8.2) 03/06/20 08:28 Absolute Lymphs (auto) 1.0 10^3/uL (0.5-4.7) 03/06/20 08:28 Absolute Monos (auto) 0.4 10^3/uL (0.1-1.4) 03/06/20 08:28 Absolute Eos (auto) 0.1 10^3/uL (0.0-0.6) 03/06/20 08:28 Absolute Basos (auto) 0.1 10^3/uL (0.0-0.2) 03/06/20 08:28 Seg Neutrophils % 73.1 % (42-78) 03/06/20 08:28 D-Dimer 0.56 ug/mL (0.00-0.50) H 03/07/20 06:38 Carbonic Acid 0.75 mmol/L (1.05-1.35) L 03/06/20 09:37 HCO3/H2CO3 Ratio 19:1 03/06/20 09:37 ABG pH 7.39 (7.35-7.45) 03/06/20 09:37 ABG pCO2 25.0 mmHg (35-45) L 03/06/20 09:37 ABG pO2 60.7 mmHg (80-100) L 03/06/20 09:37 ABG HCO3 14.7 mmol/L (20-24) L 03/06/20 09:37 ABG Total CO2 15.5 mmol/L (21-25) L 03/06/20 09:37 ABG O2 Saturation 91.6 % (94-98) L 03/06/20 09:37 ABG Base Excess -8.6 mmol/L 03/06/20 09:37 FiO2 RA 03/06/20 09:37 Sodium 138.9 mmol/L (137-145) 03/08/20 06:02 Potassium 3.8 mmol/L (3.6-5.0) 03/08/20 06:02 Chloride 102 mmol/L (98-107) 03/08/20 06:02 Carbon Dioxide 31 mmol/L (22-30) H 03/08/20 06:02 Anion Gap 6 (5-19) 03/08/20 06:02 BUN 20 mg/dL (7-20) 03/08/20 06:02 Creatinine 0.85 mg/dL (0.52-1.25) 03/08/20 06:02 Est GFR ( Amer) > 60 (>60) 03/08/20 06:02 Est GFR (MDRD) Non-Af > 60 (>60) 03/08/20 06:02 Glucose 108 mg/dL (75-110) 03/08/20 06:02 Calcium 9.6 mg/dL (8.4-10.2) 03/08/20 06:02 Magnesium 1.9 mg/dL (1.6-2.3) 03/07/20 06:38 Ferritin 114.00 ng/mL (11.1-264.0) 03/07/20 06:38 Total Bilirubin 0.8 mg/dL (0.2-1.3) 03/08/20 06:02 Direct Bilirubin 0.2 mg/dL (0.0-0.4) 03/08/20 06:02 Neonat Total Bilirubin Not Reportable 03/08/20 06:02 Neonat Direct Bilirubin Not Reportable 03/08/20 06:02 Neonat Indirect Bili Not Reportable 03/08/20 06:02 AST 32 U/L (14-36) 03/08/20 06:02 ALT 62 U/L (<35) H 03/08/20 06:02 Alkaline Phosphatase 85 U/L (38-126) 03/08/20 06:02 Troponin I 0.048 ng/mL 03/06/20 21:01 C-Reactive Protein 7.1 mg/L (<10.0) 03/07/20 06:38 NT-Pro-B Natriuret Pep 41644 pg/mL (<125) H 03/06/20 08:28 Total Protein 6.9 g/dL (6.3-8.2) 03/08/20 06:02 Albumin 4.0 g/dL (3.5-5.0) 03/08/20 06:02 Triglycerides 96 mg/dL (<150) 03/07/20 06:38 Cholesterol 169.88 mg/dL (0-200) 03/07/20 06:38 LDL Cholesterol Direct 113 mg/dL (<100) H 03/07/20 06:38 VLDL Cholesterol 19.0 mg/dL (10-31) 03/07/20 06:38 HDL Cholesterol 41 mg/dL (>40) 03/07/20 06:38 TSH 1.68 uIU/mL (0.47-4.68) 03/07/20 06:38 Urine Color YELLOW 03/06/20 09:29 Urine Appearance SLIGHTLY-CLOUDY 03/06/20 09:29 Urine pH 6.0 (5.0-9.0) 03/06/20 09:29 Ur Specific [place] 1.020 03/06/20 09:29 Urine Protein 100 mg/dL (NEGATIVE) H 03/06/20 09:29 Urine Glucose (UA) NEGATIVE mg/dL (NEGATIVE) 03/06/20 09:29 Urine Ketones NEGATIVE mg/dL (NEGATIVE) 03/06/20 09:29 Urine Blood SMALL (NEGATIVE) H 03/06/20 09:29 Urine Nitrite NEGATIVE (NEGATIVE) 03/06/20 09: Urine Bilirubin NEGATIVE (NEGATIVE) 03/06/20 09:29 Urine Urobilinogen 2.0 mg/dL (<2.0) H 03/06/20 09:29 Ur Leukocyte Esterase TRACE (NEGATIVE) H 03/06/20 09:29 Urine WBC (Auto) 11 /HPF 03/06/20 09:29 Urine RBC (Auto) 5 /HPF 03/06/20 09:29 U Hyaline Cast (Auto) 3 /LPF 03/06/20 09:29 Urine Bacteria (Auto) TRACE /HPF 03/06/20 09:29 Squamous Epi Cells Auto 2 /HPF 03/06/20 09:29 Urine Mucus (Auto) MOD /LPF 03/06/20 09:29 Urine Ascorbic Acid 40 (NEGATIVE) H 03/06/20 09:29 Influenza A (RT-PCR) NEGATIVE (NEGATIVE) 03/06/20 11:21 Influenza B (RT-PCR) NEGATIVE (NEGATIVE) 03/06/20 11:21 RSV (RT-PCR) NEGATIVE (NEGATIVE) 03/06/20 11:21 SARS-CoV-2 Rap RNA(RT-PCR) NEGATIVE (NEGATIVE) 03/06/20 11:21 03/06/20 03/06/20 03/06/20 08:28 08:28 21:01 Troponin I 0.056 0.048 NT-Pro-B Natriuret Pep [id number] H Impressions: Chest/Abdomen CTA 03/06/20 00:00 IMPRESSION: 1. Cardiomegaly, small bilateral pleural effusions and thickening of the interlobular septae - these findings are concerning for CHF. 2. The reflux of contrast into the IVC and hepatic veins is suggestive of underlying right-sided cardiac dysfunction. 3. Dilatation of the main pulmonary artery - correlate for pulmonary hypertension. Chest X-Ray 03/06/20 07:50 IMPRESSION: Cardiomegaly, small bilateral pleural effusions and patchy bilateral basilar predominant patchy parenchymal opacities. Differential considerations include CHF and multifocal pneumonia. Plan Time Spent: Greater than 30 Minutes Stroke Is this a Stroke Patient?: No Acute Heart Failure Is this a Heart Failure Patient?: Yes Documentation of LVEF assessment?: Yes LVEF: LVEF Less Than or Equal to 35% Anticoagulant Therapy: N/A Discharged on Evidence-Based Beta Blockers: Yes Discharged on ARNI?: Yes For LVEF <35%, discharged on Aldosterone Antagonist?: Yes Follow-up Appointment scheduled within 7 days?: Yes
--- NOTE | 2020-03-08 12:18 | PDOC PROGRESS REPORT ---
Subjective Date:: 03/08/20 Subjective:: Patient seems to be doing better with gradual improvement. Pt is denying any ch est arm or neck discomfort. Patient denying any PND, orthopnea. Patient denied any sustained palpitations, dizziness, syncope, near syncope. Patient denying any fever chills. Patient denying any other significant discomfort. Patient is maintaining sinus rhythm. Patient claims to have ambulated and has done well. Patient is agreeable for discharge after LifeVest has been placed. Review of systems: Rest review of systems negative. Medications: Medications have been reviewed. Reason For Visit: ACUTE CHF Physical Exam Vital Signs: Temp Pulse Resp BP Pulse Ox 98.7 F 59 L 19 149/70 H 96 03/08/20 09:15 03/08/20 11:26 03/08/20 07:44 03/08/20 11:26 03/08/20 07:44 Intake & Output 03/07/20 03/08/20 03/09/20 06:59 06:59 06:59 Intake Total 480 847 Output Total 0 Balance 480 847 Weight 88.6 kg 88.2 kg Exam: GENERAL: well-nourished and in no acute distress. Alert and oriented x3 HEAD: Atraumatic, normocephalic. EYES: KRISTIN, sclera anicteric, conjunctiva are normal. ENT: Moist mucous membranes. No oral ulcerations or bleeding gums noted. No obvious ear, nose or throat abnormalities noted. NECK: supple without lymphadenopathy. Trachea is central. No cervical or axillary lymphadenopathy noted. Carotids are 2+, JVD WNL LUNGS: Breath sounds clear bilaterally. No wheezes rales or rhonchi noted. No significant dullness noted on percussion. CHEST: Palpation of the chest wall shows no significant chest wall tenderness. HEART: M[employer]une [employer], No PSH, 1/6 HELENA aortic area, 1/6 sprague systolic murmur mitral area, no rubs, no gallops. ABDOMEN: Soft, no significant tenderness appreciated, normoactive bowel sounds. No guarding, no rebound. No rigidity noted . No masses appreciated. EXTREMITIES: Pedal pulses are 1-2+, no calf tenderness noted. No clubbing or cyanosis. negative pedal edema noted NEUROLOGICAL: Focused neurological exam showed no significant neurologic deficit. Normal speech, no focal weakness appreciated. PSYCH: Normal mood, normal affect. Judgment and insight within normal limits. SKIN: No significant ecchymosis, skin is noted to be warm. MUSCULOSKELETAL EXAM: No significant acute joint swelling noted. Results Laboratory Results: 03/08/20 06:02 03/08/20 06:02 03/08/20 03/08/20 06:02 06:02 WBC 8.2 RBC 4.32 Hgb 13.6 Hct 40.1 MCV 93 MCH 31.4 MCHC 33.9 RDW 14.8 H Plt Count 134 L Sodium 138.9 Potassium 3.8 Chloride 102 Carbon Dioxide 31 H Anion Gap 6 BUN 20 Creatinine 0.85 Est GFR ( Amer) > 60 Glucose 108 Calcium 9.6 Total Bilirubin 0.8 AST 32 Alkaline Phosphatase 85 Total Protein 6.9 Albumin 4.0 03/06/20 03/06/20 03/06/20 08:28 08:28 21:01 Troponin I 0.056 0.048 NT-Pro-B Natriuret Pep 84587 H Impressions: Chest/Abdomen CTA 03/06/20 00:00 IMPRESSION: 1. Cardiomegaly, small bilateral pleural effusions and thickening of the interlobular septae - these findings are concerning for CHF. 2. The reflux of contrast into the IVC and hepatic veins is suggestive of under lying right-sided cardiac dysfunction. 3. Dilatation of the main pulmonary artery - correlate for pulmonary hypertension. Chest X-Ray 03/06/20 07:50 IMPRESSION: Cardiomegaly, small bilateral pleural effusions and patchy bilateral basilar predominant patchy parenchymal opacities. Differential considerations include CHF and multifocal pneumonia. Assessment & Plan - Diagnosis (1) Acute CHF Qualifiers: Heart failure type: combined systolic and diastolic Qualified Code(s): I50.41 - Acute combined systolic (congestive) and diastolic (congestive) heart failure Is this a current diagnosis for this admission?: Yes (2) Hypoxia Is this a current diagnosis for this admission?: Yes (3) Uncontrolled hypertension Is this a current diagnosis for this admission?: Yes (4) Cardiomyopathy Qualifiers: Cardiomyopathy type: unspecified Qualified Code(s): I42.9 - Cardiomyopathy, unspecified Is this a current diagnosis for this admission?: Yes - Notes Notes: Patient presented with progressive shortness of breath. Patient is now much improved following diuretic therapy and better control of blood pressure. On echocardiogram noted to have dilated cardiomyopathy along with aortic incompetence. Patient also has evidence of pulmonary hypertension based on enlarged pulmonary artery. At this point recommend optimization of management for cardiomyopathy. Patient's medical regimen has been optimized quite a bit. Further adjustment can be done as an outpatient. Recommend arrangement for LifeVest application prior to discharge. Application has been signed. At some point patient will benefit from an ischemia evaluation but this can be arranged as an outpatient. Heart catheterization or CT angiogram is preferred. Patient will also benefit from evaluation with a sleep study. This is usually recommended inpatient with cardiomyopathy, pulmonary hypertension, CHF etc. Patient can be discharged on current inpatient medications to be continued as outpatient. We will continue to follow patient. Agree with current management plans. - Time Time with patient: Greater than 35 minutes Medications reviewed and adjusted accordingly: Yes
[2020-03-08 19:56] VITALS: BP 163/68
== END 2020-03-08 19:40 | disposition home or self-care (01) | DRG 293 ==
LOC: ER 07:39 → EH 11:27 → 3S 15:15 → OBSVTOIN 03-07 09:28 → 4W 03-07 23:23
PROVIDERS: ADMIT Internal Medicine; ATTEND Internal Medicine
PROC: B24BZZ4 Ultrasonography of Heart with Aorta, Transesophageal (ICD-10-PCS; principal; 2020-03-06)
DX: I11.0 Hypertensive heart disease with heart failure (principal); I50.41 Acute combined systolic (congestive) and diastolic (congestive) heart failure; I42.9 Cardiomyopathy, unspecified; Z20.822 Contact with and (suspected) exposure to COVID-19; I35.1 Nonrheumatic aortic (valve) insufficiency; R09.02 Hypoxemia; E78.5 Hyperlipidemia, unspecified; I42.0 Dilated cardiomyopathy; F17.210 Nicotine dependence, cigarettes, uncomplicated; Z86.16 Personal history of COVID-19; Z82.49 Family history of ischemic heart disease and other diseases of the circulatory system; Z80.8 Family history of malignant neoplasm of other organs or systems
CPT/HCPCS: 36415; 71045; 71275; 80053; 80061; 81001; 82728; 82803; 83735; 83880; 84443; 84484; 85025; 85027; 85379; 86140; 93005; 93010; 93306; 94640; 96374; 99285; 0241U; C9803; G0378; J1650; J1940; J2930; J3490